=== PATIENT | female | born 1980 | race Two or more races ===

== ENCOUNTER 2016-10-21 18:22 | Observation (INO) | payer SELFPAY ==
[2016-10-21] MEDS ORDERED: DOCUSATE SODIUM 283 MG/5 ML ENEMA. PR PRN (18:45)
[2016-10-21] MEDS ORDERED: SODIUM PHOSPHATES 19/7GM 133 ML ENEMA. PR ONE (19:00)
[2016-10-21] MEDS ORDERED: MAGNESIUM CITRATE 296 ML SOLUTION. PO ONE (19:30)
[2016-10-21] MEDS ORDERED: DOCUSATE SODIUM 100 MG CAPSULE PO SCH (19:30)
[2016-10-21] MEDS ORDERED: IV RINGERS,LACTATED 1000ML 1,000 ML IV SCH (20:00)
[2016-10-21] MEDS ORDERED: IV DEXTROSE 5%-LACT RINGERS 1,000 ML IV SCH (22:30)
[2016-10-21] MEDS ORDERED: BISACODYL 10 MG SUPP.RECT PR PRN (22:30)
[2016-10-21 22:53] LABS: BASO # 0.1 x10^3/uL (0.0-0.2); BASO % 1 % (0-3); EOS % 1 % (0-3); HEMATOCRIT 35.4 % (36.0-47.0); HEMOGLOBIN 11.1 g/dL (12.0-15.5); LYMPH % 26 % (24-48); MEAN CORPUSCULAR HEMOGLOBIN 24 pg (25-35); MEAN CORPUSCULAR HGB CONC 32 g/dL (31-37); MEAN CORPUSCULAR VOLUME 76 fL (79-100); MONO % 8 % (0-9); NEUT % 64 % (31-73); PLATELET COUNT 222 x10^3/uL (140-400); RED BLOOD COUNT 4.63 x10^6/uL (3.50-5.40); WHITE BLOOD COUNT 7.8 x10^3/uL (4.0-11.0)
[2016-10-21 23:15] LABS: ALBUMIN 3.1 g/dL (3.4-5.0); ALBUMIN/GLOBULIN RATIO 0.7 (1.0-1.7); CALCIUM 9.5 mg/dL (8.5-10.1); CREATININE 0.5 mg/dL (0.6-1.0); GFR 141.2; POTASSIUM 3.6 mmol/L (3.5-5.1); TOTAL BILIRUBIN 0.6 mg/dL (0.2-1.0); TOTAL PROTEIN 7.6 g/dL (6.4-8.2)
== END 2016-10-21 23:57 | disposition home or self-care (01) ==
LOC: 3 SO LND 18:22
PROVIDERS: ADMIT Specialist; ATTEND Specialist
DX: O26.892 Other specified pregnancy related conditions, second trimester (principal); K59.00 Constipation, unspecified; Z3A.26 26 weeks gestation of pregnancy
CPT/HCPCS: 36415; 80053; 83036; 85027; 96360; G0378; G0379